=== PATIENT | female | born 1970 | race African-American/Black ===

== ENCOUNTER 2025-06-16 12:00 | Emergency (ER) | payer OTHER, SELFPAY ==
[2025-06-16 12:03] VITALS: BP 152/72
--- NOTE | 2025-06-16 12:23 | ED.GENMED ---
History of Present Illness
General
Chief Complaint: Cardiac Symptoms
Source: patient
Exam Limitations: none
Time Seen by Provider: 06/16/25 12:19
History of Present Illness
History of Present Illness:
55yoF with a history of coronary artery disease, hyperlipidemia, and bipolar disorder presenting for evaluation of palpitations. Patient reports a history of a heart attack about 2 months ago at [facility] in [place]. She had a
cardiac catheterization and was told that she had a 'partial blockage.' A second catheterization was performed the following day which did not show any blockage and she was managed medically and sent to cardiac rehab which she recently finished.
She entered [facility] about a week ago for her bipolar disorder and she is scheduled to be there for the next months. Her Klonopin dose was decreased from 0.5mg daily to 0.25mg two days ago. She started to notice palpitations 2
days ago which feels like her 'heart is spasming' and there is a 'jab' that lasts 3-5 seconds. Nothing seems to make the symptoms better or worse. The nurses at her residential facility have been monitoring her vital signs which have all been
normal. She had some discomfort in her abdomen yesterday and decided to come to the ED. She has no abdominal pain currently. She is otherwise asymptomatic and denies any shortness of breath, dizziness, syncope, nausea, vomiting, diaphoresis,
tremors.
Phy Exam
General Physical Exam
General Presentation: well appearing and no apparent distress
General Skin: warm and dry
General Habitus: normal
General Mental: alert
ENT Exam
ENT Exam: normocephalic
Cardiovascular Exam
Cardiovascular Exam: regular rate/rhythm, no edema, no murmur and normal peripheral pulses (2+ radial pulses bilaterally)
Pulmonary Exam
Pulmonary Exam: lungs clear, no respiratory distress, no rales, chest non tender, no crackles, no rhonchi and no wheezing
Gastrointestinal Exam
Gastrointestinal Exam: non tender, soft and non distended
Neurological Exam
Neurological Exam: alert
Colwell Coma Scale
Eye Opening: Spontaneous
Verbal Response: Oriented
Motor Response: Obeys Commands
GCS Total Score: 15
Skin Exam
Skin Exam: normal color and warm/dry
Psychiatric Exam
Psychiatric Exam: normal mood/affect
Course
Orders/Labs/Results
Orders:
Orders
06/16/25 12:09
EKG [Electrocardiogram (*1)] Urgent
Reason for Study: Palpitations
EKG- Treatment ONCE
06/16/25 12:39
Cardiac Monitoring- Treatment ONCE
06/16/25 12:51
Complete Blood Count/With Diff Urgent
Comprehensive Metabolic Panel Urgent
Magnesium Urgent
TSH Reflex To Free T4 Urgent
Troponin I Urgent
Urinalysis Reflex To Culture Urgent
Date Specimen was Collected: 06/16/25
Time Specimen was Collected: 12:46
Urine Microscopic Reflex Cult Urgent
Urine Culture Urgent
NATO Source: U
Specimen Description:
Obtained by: Random
Date Specimen was Collected: 06/16/25
Time Specimen was Collected: 12:46
Abnormal Lab Results
06/16/25
12:51
WBC 3.9 L 10^3/uL
(4.8-10.8)
Hgb 11.6 L g/dL
(12.0-16.0)
Hct 35.8 L %
(37.0-47.0)
MCV 71.2 L fL
(81.0-99.0)
MCH 23.1 L pg
(27.0-31.0)
MCHC 32.4 L g/dL
(33.0-37.0)
RDW 14.7 H %
(11.5-14.5)
Absolute Lymphs (auto) 1.0 L 10^3/uL
(1.2-3.4)
BUN 19 H mg/dl
(7-17)
AST 50 H U/L
(14-36)
ALT 98 H U/L
(0-35)
Albumin 5.2 H g/dl
(3.5-5.0)
Leukocyte Esterase Rfl 1+ A
(Negative)
06/16/25 12:51
06/16/25 12:51
Vital Signs
Initial and Last Documented VS:
Initial Vital Signs
Temp Pulse Resp BP Pulse Ox
98.7 F 64 16 152/72 100
06/16/25 12:03 06/16/25 12:03 06/16/25 12:03 06/16/25 12:03 06/16/25 12:03
Last Documented Vital Signs
Temp Pulse Resp BP Pulse Ox
98.7 F 62 18 152/72 100
06/16/25 12:03 06/16/25 14:45 06/16/25 14:45 06/16/25 12:03 06/16/25 14:45
MDM/Problems Addressed
Differential Diagnosis Includes:
55yoF here with palpitations x 2 days. Feels like heart is spasming for 3-5 seconds which comes on randomly. Recent decrease in Klonopin dosing 2 days ago although no other clinical s/s to suggest benzodiazepine withdrawal. Hx of RI 2 months ago but
did not require intervention. She is hypertensive with otherwise stable vitals. She is well appearing in no distress and exam is reassuring. Differential diagnosis includes but is not limited to: ACS, arrhythmia, PVCs, thyroid dysfunction
Initial ED plan: Triage EKG shows NSR without ischemic changes or ectopy. Check cardiac labs, magnesium, TSH, and place on night monitor.
*Pulse Oximetry
SaO2: 100
Oxygen Mode of Delivery: Room air
Patient hypoxic: no
*EKG
Interpreted by ED Provider?: Yes
EKG Intrepretation Date: 06/16/25
Heart Rate: 57
Rate: bradycardiac
Rhythm: sinus
[place]: normal axis
Interval: other (possible left atrial enlargement )
QRS Pattern: normal QRS
Ischemia: no ischemia
*Critical Care Note
Total Time (30-74mins, 75-104mins- exclusive of procedures): Not Applicable
Update Note
Update Note:
Labs revealing mild transaminitis with AST 50 and ALT 98, total bilirubin normal. No prior labs to compare to. She does report that her statin was previously discontinued due to transaminitis but this was restarted during her recent
hospitalization. Remainder of labs unremarkable including normal electrolytes, TSH, and troponin. No telemetry events throughout ED stay. She is stable for discharge. Patient advised to follow-up with her oyster shucker. She is also instructed to
have repeat blood work next month to monitor her LFTs. Strict ED return precautions reviewed. Patient agreed with plan and she was discharged in stable condition.
ED Attending Note
-
Portions of this chart may have been created with voice recognition software.� Occasional wrong word or��sound alike� substitutions may have occurred due to the inherent limitations of voice recognition software.
Discharge Plan
Departure
Patient Disposition: Home (Routine Discharge)
Date of Disposition: 06/16/25
Time of Disposition: 14:41
Patient with high blood pressure during this ER visit?: Yes
Discharge Problem:
Palpitations, Transaminitis
Instructions: Palpitations - ED (DC)
Referrals:
Henrry Fountain MD [Active, Cardiology]
NONE,* [Family Provider, Internal Medicine]
Activity Restrictions/Additional Instructions:
Please call to schedule a follow-up appointment with your oyster shucker and family doctor. You should have repeat blood work next month to monitor your liver enzymes.
Return to the ER immediately with any new or worsening symptoms.
Interventions
Interventions:
*Risk Screen - Suicide Last Done: 06/16/25 12:03
*General Assessment Last Done: 06/16/25 12:30
*Neglect/Abuse Screening Last Done: 06/16/25 12:03
*ED- Fall Risk Assessment Last Done: 06/16/25 12:30
*ED COVID-19 Vaccine History Last Done: 06/16/25 12:30
*ED Influenza Vaccine History Last Done: 06/16/25 12:30
*Nursing Disposition Last Done: 06/16/25 14:53
ED- Pulmonary Assessment Last Done: 06/16/25 12:30
ED- Cardiac Assessment Last Done: 06/16/25 12:30
Discharge Date and Time
Discharge Date/Time: 06/16/25 14:53
Print Language: PALESTINIAN
[2025-06-16 13:04] LABS: Hematocrit 35.8 % (37.0-47.0); Hemoglobin 11.6 g/dL (12.0-16.0); Mean Corp Hgb Conc. 32.4 g/dL (33.0-37.0); Mean Corpuscular Volume 71.2 fL (81.0-99.0); Nucleated Red Blood Cells % 0 %; Red Cell Dist. Width 14.7 % (11.5-14.5)
[2025-06-16 13:09] LABS: Urine Character Clear (Clear)
[2025-06-16 13:20] LABS: Urine Red Blood Cell 0-2 /HPF (0-2); Urine White Cell 0-2 /HPF (0-5)
[2025-06-16 13:23] LABS: ALT (SGPT) 98 U/L (0-35); AST (SGOT) 50 U/L (14-36); Albumin 5.2 g/dl (3.5-5.0); Alkaline Phosphatase 101 U/L (38-126); Blood Urea Nitrogen 19 mg/dl (7-17); Calcium 9.8 mg/dl (8.4-10.2); Carbon Dioxide 28 mmol/L (22-30); Chloride 105 mmol/L (98-107); Glucose 83 mg/dl (70-99); Magnesium 2.1 mg/dl (1.6-2.3); Potassium 4.1 mmol/L (3.5-5.1); Sodium 142 mmol/L (135-145); Total Protein 7.9 g/dl (6.3-8.2); eGFR > 60.00
[2025-06-16 13:28] LABS: Platelet Count 139 10^3/uL (130-400)
[2025-06-16 13:32] LABS: Troponin I 0.015 ng/ml
== END 2025-06-16 14:53 | disposition home or self-care (01) ==
LOC: EMR 12:00
PROVIDERS: Physician Assistant; EMERGENCY PHYSICIAN Student in an Organized Health Care Education/Training Program
DX: R00.2 Palpitations (principal); R74.01 Elevation of levels of liver transaminase levels; E78.5 Hyperlipidemia, unspecified; I25.10 Atherosclerotic heart disease of native coronary artery without angina pectoris; I25.2 Old myocardial infarction; F31.9 Bipolar disorder, unspecified; Z79.899 Other long term (current) drug therapy
CPT/HCPCS: 99284; 80053; 81003; 81015; 83735; 84443; 84484; 85025; 87086; 93005

== ENCOUNTER 2025-06-18 13:43 | Emergency (ER) | payer OTHER, SELFPAY ==
[2025-06-18 13:46] VITALS: BMI 23.0
--- NOTE | 2025-06-18 13:50 | ED.GENMED ---
History of Present Illness
General
Chief Complaint: Chest Pain
Source: patient
Exam Limitations: none
Time Seen by Provider: 06/18/25 13:49
Nursing documentation reviewed up to this point in time: agreed with
History of Present Illness
History of Present Illness:
55 yo F with h/o CAD, HLD, anemia, Bipolar/Depression presents from [facility] via EMS. Pt states while eating lunch 12:30 developed burning pain from abdomen up to upper chest, from both hands, up both arms 'I thought I was having
a heart attack.'
EMS at bedside states they arrived after staff gave NTG SL x 3 and pt was asymptomatic except for felling dizzy. Her systolic pressure was 104 reportedly. They gave her ASA 324 mg. EMS reports pt told them she was hearing voices telling her to kill
herself. She states she has heard voices before but never telling her to do that. She denies wanting to kill herself. She denies SOB, abd pain, n/v/d/c.
Past History
Past History
ED Past Medical History: CAD, Hypercholesterolemia, Psychiatric (bipolar, depression) and Other (Anemia)
ED Past Surgical History: Cardiac (catheterization)
Review of Systems
Review of Systems
Allergies reviewed?: Yes
All Other Systems: ROS reviewed and negative except as documented in HPI and ROS
Phy Exam
Physical Exam
Physical Exam:
GENERAL: No acute distress. A&Ox3.
CONSTITUTIONAL: Afebrile.
EYES: clear, conjunctivae normal
ENMT: moist mucus membranes, Pharynx nl
RESPIRATORY: Regular respirations, nonlabored, lungs clear.
CARDIOVASCULAR: Regular rate and rhythm, no murmurs, no rubs.
GI: Soft, nontender, normal BS
MUSCULOSKELETAL: Moves with ease. Well perfused.
SKIN: Warm, dry, pink
PSYCH: Staring straight, not good eye contact, calm mood and affect. Well kept, answering questions, cooperative.
NEUROLOGIC: Awake, alert and oriented. No focal neurological deficits
Scores
Heart Score for Chest Pain Patients
STEMI patient?: Not applicable
Course
Orders/Labs/Results
Orders:
Orders
06/18/25 13:46
Electrocardiogram (*1) Urgent
Reason for Study: Chest Pain
EKG- Treatment ONCE
06/18/25 14:24
Complete Blood Count/With Diff Urgent
Comprehensive Metabolic Panel Urgent
Troponin I Urgent
Urinalysis Reflex To Culture Urgent
Date Specimen was Collected: 06/18/25
Time Specimen was Collected: 14:12
Urine Microscopic Reflex Cult Urgent
06/18/25 17:08
Electrocardiogram (*1) Urgent
Reason for Study: Other
Other Reason for Exam: Possible Sepsis
EKG- Treatment ONCE
06/18/25 17:13
CR Chest - 2 Views Urgent
Comment:
Reason For Exam: chest pain
06/18/25 17:21
Troponin I Urgent
06/18/25 18:43
Pantoprazole [Protonix IV] 80 mg IV NOW STA
Abnormal Lab Results
06/18/25
14:24
MCV 69.9 L fL
(81.0-99.0)
MCH 23.0 L pg
(27.0-31.0)
MCHC 32.9 L g/dL
(33.0-37.0)
RDW 14.6 H %
(11.5-14.5)
Absolute Lymphs (auto) 1.1 L 10^3/uL
(1.2-3.4)
Lymphocytes % 18.0 L %
(20.5-51.1)
BUN 19 H mg/dl
(7-17)
Glucose 107 H mg/dl
(70-99)
AST 76 H U/L
(14-36)
ALT 153 H U/L
(0-35)
Total Protein 8.4 H g/dl
(6.3-8.2)
Albumin 5.5 H g/dl
(3.5-5.0)
Ur Occult Blood Reflex 1+ A
(Negative)
06/18/25 14:24
06/18/25 14:24
Vital Signs
Initial and Last Documented VS:
Initial Vital Signs
Resp
18
06/18/25 13:46
Last Documented Vital Signs
Temp Pulse Resp BP Pulse Ox
98.0 F 68 24 135/78 100
06/18/25 14:37 06/18/25 17:45 06/18/25 17:45 06/18/25 17:38 06/18/25 17:45
MDM/Problems Addressed
Differential Diagnosis Includes:
ACS, GERD
MDM/Problems Addressed:
55 yo F with h/o CAD, HLD, anemia, Bipolar/Depression presents from [facility] via EMS. Pt states while eating lunch 12:30 developed burning pain from abdomen up to upper chest, from both hands, up both arms 'I thought I was having
a heart attack.'
EMS at bedside states they arrived after staff gave NTG SL x 3 and pt was asymptomatic except for felling dizzy. Her systolic pressure was 104 reportedly. They gave her ASA 324 mg. EMS reports pt told them she was hearing voices telling her to kill
herself. She states she has heard voices before but never telling her to do that. She denies wanting to kill herself. She denies SOB, abd pain, n/v/d/c.
EKG NSR okay
CBC with no clinically significant abnormality
CMP with no clinically significant abnormality. Patient has had mild elevation in liver enzymes in the past
UA negative
Troponin #1 within normal limits
6:30 PM:
Troponin #2 within normal limits
Chest x-ray NAD
Patient remains asymptomatic, stable for discharge back to psych facility
*Pulse Oximetry
SaO2: 98
Oxygen Mode of Delivery: Room air
Patient hypoxic: no
*EKG
EKG Intrepretation Date: 06/18/25
Interpretation: normal
Heart Rate: 63
Rate: normal
Rhythm: sinus
[place]: normal axis
Interval: normal interval
QRS Pattern: normal QRS
Ischemia: no ischemia
*Critical Care Note
Total Time (30-74mins, 75-104mins- exclusive of procedures): Not Applicable
ED Attending Note
-
Portions of this chart may have been created with voice recognition software.� Occasional wrong word or��sound alike� substitutions may have occurred due to the inherent limitations of voice recognition software.
Discharge Plan
Departure
Patient Disposition: Psych Facility
Date of Disposition: 06/18/25
Time of Disposition: 18:42
Patient with high blood pressure during this ER visit?: No
Condition: Good
Discharge Problem:
Atypical chest pain
Instructions: Chest Pain That Is Not Caused by the Heart (DC)
Prescriptions:
No Action
chlorpheniramine maleate [Chlor-Trimeton] 4 mg Tablet
4 mg PO Q6HPRN PRN (Reason: allergies)
ondansetron HCl [Zofran] 4 mg Tablet
4 mg PO Q6HPRN PRN (Reason: nausea)
clonazepam [Klonopin] 0.5 mg Tablet
0.5 mg PO HS
acetaminophen [Tylenol Extra Strength] 500 mg Tablet
1,000 mg PO Q8HPRN PRN (Reason: mild pain)
lamotrigine [Lamictal] 25 mg Tablet
50 mg PO DAILY
trazodone 100 mg Tablet
100 mg PO HS
diphenhydramine HCl [Benadryl] 25 mg Capsule
25 mg PO Q6HPRN PRN (Reason: allergies)
docusate sodium [Colace] 100 mg Capsule
100 mg PO DAILY
gabapentin 300 mg Capsule
900 mg PO HS
oxcarbazepine 600 mg Tablet
600 mg PO BID
loratadine [Loradamed] 10 mg Tablet
10 mg PO DAILY
hydroxyzine pamoate 25 mg Capsule
25 mg PO Q6HPRN PRN (Reason: anxiety)
aripiprazole [Abilify] 15 mg Tablet
15 mg PO DAILY
rosuvastatin [Crestor] 40 mg Tablet
40 mg PO DAILY
prasugrel HCl [Effient] 10 mg Tablet
10 mg PO DAILY
melatonin 5 mg Lozenge
5 mg PO HS
latanoprost 0.005 % Drops
1 drp BOTH EYES HS
aspirin 81 mg Tablet,Delayed Release (Dr/Ec)
81 mg PO DAILY
metoprolol succinate [Toprol XL] 25 mg Tablet Extended Release 24 Hr
25 mg PO DAILY
Referrals:
NONE,* [Family Provider, Internal Medicine]
Activity Restrictions/Additional Instructions:
Ms Drake workup here shows nothing worrisome, specifically no indication of heart attack or injury
She received Protonix 80 mg IV for possible GERD/Reflux.
As her provider if she should continue the Protonix or other PPI.
Interventions
Interventions:
*Risk Screen - Suicide Last Done: 06/18/25 13:46
*General Assessment Last Done: 06/18/25 14:37
*Neglect/Abuse Screening Last Done: 06/18/25 13:46
*ED- Fall Risk Assessment Last Done: 06/18/25 13:46
*ED COVID-19 Vaccine History Last Done: 06/18/25 13:46
*ED Influenza Vaccine History Last Done: 06/18/25 13:46
*Nursing Disposition Last Done: 06/18/25 19:14
ED- Cardiac Assessment Last Done: 06/18/25 13:46
Discharge Date and Time
Discharge Date/Time: 06/18/25 19:32
Print Language: CHINESE
[2025-06-18 13:53] VITALS: BP 144/70
[2025-06-18 14:32] LABS: Urine Character Clear (Clear)
[2025-06-18 14:57] LABS: Hematocrit 37.7 % (37.0-47.0); Hemoglobin 12.4 g/dL (12.0-16.0); Mean Corp Hgb Conc. 32.9 g/dL (33.0-37.0); Mean Corpuscular Volume 69.9 fL (81.0-99.0); Nucleated Red Blood Cells % 0 %; Platelet Count 148 10^3/uL (130-400); Red Cell Dist. Width 14.6 % (11.5-14.5)
[2025-06-18 15:09] LABS: Urine Squamous Cell 21-25 /LPF (Few)
[2025-06-18 15:10] LABS: Urine Red Blood Cell 0-2 /HPF (0-2); Urine White Cell 0-2 /HPF (0-5)
[2025-06-18 15:11] LABS: ALT (SGPT) 153 U/L (0-35); AST (SGOT) 76 U/L (14-36); Albumin 5.5 g/dl (3.5-5.0); Alkaline Phosphatase 123 U/L (38-126); Blood Urea Nitrogen 19 mg/dl (7-17); Calcium 10.0 mg/dl (8.4-10.2); Carbon Dioxide 26 mmol/L (22-30); Chloride 107 mmol/L (98-107); Estimated Creatinine Clearance 70 ml/min; Glucose 107 mg/dl (70-99); Potassium 4.8 mmol/L (3.5-5.1); Sodium 142 mmol/L (135-145); Total Protein 8.4 g/dl (6.3-8.2); eGFR > 60.00
[2025-06-18 15:22] LABS: Troponin I 0.018 ng/ml
[2025-06-18 15:53] VITALS: BP 137/71
[2025-06-18 16:00] VITALS: BP 133/77
[2025-06-18 17:38] VITALS: BP 135/78
[2025-06-18 17:54] LABS: Troponin I 0.021 ng/ml
[2025-06-18] MEDS: PROTONIX IV 80 MG IV (18:56)
== END 2025-06-18 19:32 ==
LOC: EMR 13:43
PROVIDERS: Registered Nurse; EMERGENCY PHYSICIAN Emergency Medicine
DX: R07.89 Other chest pain (principal); I25.10 Atherosclerotic heart disease of native coronary artery without angina pectoris; E78.00 Pure hypercholesterolemia, unspecified; F31.9 Bipolar disorder, unspecified; D64.9 Anemia, unspecified
CPT/HCPCS: 99283; 96374; 71046; 80053; 81003; 81015; 84484; 85025; 93005

== ENCOUNTER 2025-06-20 10:48 | Emergency (ER) | payer OTHER, SELFPAY ==
[2025-06-20 10:49] VITALS: BP 155/92
--- NOTE | 2025-06-20 13:19 | ED.GENMED ---
History of Present Illness
<Dany Peña PA-C - Last Filed: 06/20/25 15:27>
General
Chief Complaint: Change in Mental Status
Source: patient
Exam Limitations: none
Time Seen by Provider: 06/20/25 13:11
History of Present Illness
History of Present Illness:
55-year-old female presents from psychiatric facility with change in mental status. She presented to this particular facility on 08 June and over the past 2 days has become much more psychotic. The tech that accompanies her states that she is
having ongoing inner dialogue. She is making excessive sexual and hindu remarks. She has a history of bipolar disorder with psychotic features. She has been refusing medicine over the past 2 days. Facility that she is at currently cannot
handle the level of care she needs. I cannot obtain any history from the patient
Past History
<BETY Cole Last Filed: 06/20/25 15:27>
Past History
ED Past Medical History: CAD, Hypercholesterolemia, Psychiatric (bipolar, depression) and Other (Anemia)
ED Past Surgical History: Cardiac (catheterization)
Phy Exam
<BETY Cole Last Filed: 06/20/25 15:27>
Physical Exam
Physical Exam:
General: Well-developed female no acute respiratory distress
HEENT normal cephalic atraumatic
Neurologic exam: Making eye contact
Psychiatric exam: Patient consistently has inner dialogue during my exam not answering my questions appropriately not able to answer any my questions for that matter. She rambles on about nonsense
Extremities: No cyanosis
Course
<BETY Cole Last Filed: 06/20/25 15:27>
Orders/Labs/Results
Orders:
Orders
06/20/25 12:37
Crisis Consult Urgent
Reason for Consult: elsy
06/20/25 13:00
Restraints - Violent As Directed
Restraint Type-: Soft Limb-4 point/4 rails
Apply From (date): 06/20/25
Apply from (time): 13:00
Remove (date): 06/20/25
Remove (time): 17:08
06/20/25 13:08
1:1 Observation - Suicide/ Violent Behavior As Directed
06/20/25 13:24
PSYCHIATRY CONSULT Urgent
Consulting Provider: Babar De Jesus
Was physician already notified: Yes
Reason for consult: psychosis
06/20/25 15:04
Alcohol Urgent
Complete Blood Count/With Diff Urgent
Comprehensive Metabolic Panel Urgent
Drug Screen, Urine [Urine Drug Abuse Screen] Urgent
06/20/25 16:00
Aripiprazole [Abilify] 15 mg PO DAILY
06/20/25 22:00
Trazodone [Desyrel] 100 mg PO HS
Vital Signs
Initial and Last Documented VS:
Initial Vital Signs
Temp Pulse Resp BP Pulse Ox
37.1 C 64 14 155/92 99
06/20/25 10:49 06/20/25 10:49 06/20/25 10:49 06/20/25 10:49 06/20/25 10:49
Last Documented Vital Signs
Temp Pulse Resp BP Pulse Ox
37.1 C 64 14 155/92 99
06/20/25 10:49 06/20/25 10:49 06/20/25 10:49 06/20/25 10:49 06/20/25 13:23
<Tee Deal MD - Last Filed: 06/20/25 15:43>
Orders/Labs/Results
Orders:
Orders
06/20/25 12:37
Crisis Consult Urgent
Reason for Consult: elsy
06/20/25 13:00
Restraints - Violent As Directed
Restraint Type-: Soft Limb-4 point/4 rails
Apply From (date): 06/20/25
Apply from (time): 13:00
Remove (date): 06/20/25
Remove (time): 17:08
06/20/25 13:08
1:1 Observation - Suicide/ Violent Behavior As Directed
06/20/25 13:24
PSYCHIATRY CONSULT Urgent
Consulting Provider: Babar De Jesus
Was physician already notified: Yes
Reason for consult: psychosis
06/20/25 15:04
Alcohol Urgent
Complete Blood Count/With Diff Urgent
Comprehensive Metabolic Panel Urgent
Drug Screen, Urine [Urine Drug Abuse Screen] Urgent
06/20/25 16:00
Aripiprazole [Abilify] 15 mg PO DAILY
06/20/25 22:00
Trazodone [Desyrel] 100 mg PO HS
Vital Signs
Initial and Last Documented VS:
Initial Vital Signs
Temp Pulse Resp BP Pulse Ox
37.1 C 64 14 155/92 99
06/20/25 10:49 06/20/25 10:49 06/20/25 10:49 06/20/25 10:49 06/20/25 10:49
Last Documented Vital Signs
Temp Pulse Resp BP Pulse Ox
37.1 C 64 14 155/92 99
06/20/25 10:49 06/20/25 10:49 06/20/25 10:49 06/20/25 10:49 06/20/25 13:23
<Dany Peña PA-C - Last Filed: 06/20/25 15:27>
MDM/Problems Addressed
Differential Diagnosis Includes:
Patient here for evaluation. Crisis consult has been placed. She appears to be psychotic and or manic.
<Dany Peña PA-C - Last Filed: 06/20/25 15:27>
*Pulse Oximetry
SaO2: 99
Oxygen Mode of Delivery: Room air
Patient hypoxic: no
*Critical Care Note
Total Time (30-74mins, 75-104mins- exclusive of procedures): Not Applicable
<Dany Peña PA-C - Last Filed: 06/20/25 15:27>
Update Note
Update Note:
Patient evaluated by psychiatry who is recommending the patient is a 302 as she wants to leave and is not stable. Discussed with emergency room attending. Ordered labs. Patient will be kept here until placement
ED Attending Note
<Dany Peña PA-C - Last Filed: 06/20/25 15:27>
-
Portions of this chart may have been created with voice recognition software.� Occasional wrong word or��sound alike� substitutions may have occurred due to the inherent limitations of voice recognition software.
<Tee Deal MD - Last Filed: 06/20/25 15:43>
ED Attending Note
Patient seen and examined by attending physician: Yes
ED Attending Note:
I have seen and evaluated the patient with a [id number] encounter. I have spoken to the advance practicer provider and involved in the medical history, the physical exam, medical decision making.
Evaluation and management service: agree unless noted differently below.
Results interpretation: agree unless noted differently below.
Focused HPI: 55-year-old female presents to the ER acutely psychotic. She apparently lives in an monitored care situation with a known history of bipolar disorder. She has had increasing hallucinations and erratic behavior which prompted ER
referral. Patient appears to be acutely psychotic here and cannot meaningfully participate in history.
Physical exam: Awake and alert, nontoxic. No signs of trauma. She is responding to internal stimuli. Bizarre behavior. Occasionally aggressive.
Medical Decision Making: Ms. Drake is a 55-year-old female who presented to our emergency room today from [place]; she apparently has a documented history of bipolar disorder. Review of her medical record here showed that she has been here
twice over the past week with chest pain/palpitations but had fortunately reassuring medical workups. Review of the record appears to indicate that she was able to participate meaningfully in history at that time. She comes to the emergency room
today and appears to be acutely psychotic.When I ask her what her name is she shakes her head and says that she will not tell me. When asked if she knows where she is she says 'everywhere and nowhere.' When asked about drug or alcohol use she says
that she never uses them. She will not really answer any other questions very consistently. She is frequently saying odd things during the interview. She is making inappropriate remarks such as 'you are just a motherfucker,' and 'you have so much
glass up your ass.' She does not seem to be saying these things aggressively towards me and it appears that she is responding to internal stimuli. In my judgment she appears to be acutely psychotic and in need of psychiatric stabilization in the
inpatient setting.
Discharge Plan
Departure
Patient Disposition: Psych Facility
Date of Disposition: 06/20/25
Time of Disposition: 15:26
Discharge Problem:
acute pyschosis, Acute psychosis
Prescriptions:
No Action
chlorpheniramine maleate [Chlor-Trimeton] 4 mg Tablet
4 mg PO Q6HPRN PRN (Reason: allergies)
ondansetron HCl [Zofran] 4 mg Tablet
4 mg PO Q6HPRN PRN (Reason: nausea)
clonazepam [Klonopin] 0.5 mg Tablet
0.5 mg PO HS
acetaminophen [Tylenol Extra Strength] 500 mg Tablet
1,000 mg PO Q8HPRN PRN (Reason: mild pain)
lamotrigine [Lamictal] 25 mg Tablet
50 mg PO DAILY
trazodone 100 mg Tablet
100 mg PO HS
diphenhydramine HCl [Benadryl] 25 mg Capsule
25 mg PO Q6HPRN PRN (Reason: allergies)
docusate sodium [Colace] 100 mg Capsule
100 mg PO DAILY
gabapentin 300 mg Capsule
900 mg PO HS
oxcarbazepine 600 mg Tablet
600 mg PO BID
loratadine [Loradamed] 10 mg Tablet
10 mg PO DAILY
hydroxyzine pamoate 25 mg Capsule
25 mg PO Q6HPRN PRN (Reason: anxiety)
aripiprazole [Abilify] 15 mg Tablet
15 mg PO DAILY
rosuvastatin [Crestor] 40 mg Tablet
40 mg PO DAILY
prasugrel HCl [Effient] 10 mg Tablet
10 mg PO DAILY
melatonin 5 mg Lozenge
5 mg PO HS
latanoprost 0.005 % Drops
1 drp BOTH EYES HS
aspirin 81 mg Tablet,Delayed Release (Dr/Ec)
81 mg PO DAILY
metoprolol succinate [Toprol XL] 25 mg Tablet Extended Release 24 Hr
25 mg PO DAILY
Referrals:
UNKNOWN - PT NOT,INTERVIEWE [Family Provider]
Interventions
Interventions:
*Risk Screen - Suicide Last Done: 06/20/25 10:49
*General Assessment Last Done: 06/20/25 10:49
*Neglect/Abuse Screening Last Done: 06/20/25 10:49
*ED- Fall Risk Assessment Last Done: 06/20/25 13:13
*ED COVID-19 Vaccine History Last Done: 06/20/25 10:49
*ED Influenza Vaccine History Last Done: 06/20/25 10:49
ED- Pulmonary Assessment Last Done: 06/20/25 13:32
ED-Psychological Assessment Last Done: 06/20/25 12:55
ED- Neurological Assessment Last Done: 06/20/25 13:25
Discharge Date and Time
Print Language: SURINAMESE
--- NOTE | 2025-06-20 15:24 | W.PN.UPDATE ---
Update Note
Progress Note Update
55 yo lady looking much younger than her stated age referred from a residential program. She is presently in restraints due to aggressive behavior towars staff, but is presently not agitated. I am not able to get history from her. She has looseness
of associations, flight of thoughts and ideas. She mumbles about some lady with a penis and referrs frequantly to anal openings.
She was recently discharged from an inpatient facility to [facility], a residential facility, was initially stable but then possibly stopped her medicationd and became acutely psychotic. She was discharded on Abilify 15 mg daily, Klonopin 0.5hs,
Neurontin 900 mg hs,Lamictal 50 od and Trazodone 100 mg hs.
At this point it would apper she has bipolar disorder with psychotic features and is in the state of acute psychosis.
I will order the Abilify 15 mg as well as Trazodone 100 hs.
Completed 302 as patient needs involuntary psychiatric hospitalization to stabilize her psychosis.
[2025-06-20] MEDS: ABILIFY 15 MG PO (16:06)
[2025-06-20 16:29] LABS: Hematocrit 41.2 % (37.0-47.0); Hemoglobin 12.8 g/dL (12.0-16.0); Mean Corp Hgb Conc. 31.1 g/dL (33.0-37.0); Mean Corpuscular Volume 72.3 fL (81.0-99.0); Nucleated Red Blood Cells % 0 %; Platelet Count 152 10^3/uL (130-400); Red Cell Dist. Width 14.6 % (11.5-14.5)
[2025-06-20 16:38] LABS: ALT (SGPT) 85 U/L (0-35); AST (SGOT) 36 U/L (14-36); Albumin 5.4 g/dl (3.5-5.0); Alkaline Phosphatase 96 U/L (38-126); Blood Urea Nitrogen 15 mg/dl (7-17); Calcium 10.3 mg/dl (8.4-10.2); Carbon Dioxide 29 mmol/L (22-30); Chloride 104 mmol/L (98-107); Glucose 96 mg/dl (70-99); Potassium 4.1 mmol/L (3.5-5.1); Sodium 140 mmol/L (135-145); Total Protein 8.8 g/dl (6.3-8.2); eGFR > 60.00
[2025-06-20] MEDS: DESYREL 100 MG PO (21:47)
[2025-06-21 01:28] VITALS: BP 120/71
== END 2025-06-21 11:29 ==
LOC: EMR 10:48
PROVIDERS: Physician Assistant; CONSULT PHYSICIAN Psychiatry & Neurology Psychiatry; EMERGENCY PHYSICIAN Emergency Medicine
DX: F23 Brief psychotic disorder (principal); E78.00 Pure hypercholesterolemia, unspecified; I25.10 Atherosclerotic heart disease of native coronary artery without angina pectoris
CPT/HCPCS: 99285; 80053; 80306; 82077; 85025